=== PATIENT | female | born 1985 | race African-American/Black ===

== ENCOUNTER 2022-01-01 02:12 | Emergency (ER) | payer OTHER ==
[~2022-01-01] VITALS: Ht 177.8 cm; Wt 90.7 kg
[2022-01-01 02:20] VITALS: BP_SYST 133
[2022-01-01] MEDS ORDERED: MORPHINE 4 MG INJ. 4 MG/ML VIAL IM ONE (03:00)
[2022-01-01 03:02] VITALS: BP_SYST 133
[2022-01-01] MEDS ORDERED: HYDR-3917 PO (04:57)
[2022-01-01] MEDS ORDERED: IBUP-1971 PO (04:57)
== END 2022-01-01 06:34 | disposition home or self-care (01) ==
LOC: SED 02:12
DX: R07.89 Other chest pain (principal); R51.9 Headache, unspecified; J45.909 Unspecified asthma, uncomplicated; I10 Essential (primary) hypertension; Z79.899 Other long term (current) drug therapy; V47.5XXA Car driver injured in collision with fixed or stationary object in traffic accident, initial encounter; Y93.89 Activity, other specified; Y92.89 Other specified places as the place of occurrence of the external cause; Y99.8 Other external cause status
CPT/HCPCS: 99284; 70450; 71045; 76376; 81002; 81025; 96372; J2270